=== PATIENT | male | born 1940 | race Caucasian/White ===

== ENCOUNTER → 2019-10-11 | Outpatient (CLI) | payer OTHER ==
[~2019-10-11] MED LIST: AMBIEN 10 MG TA10 MG PO; ASPIRIN EC81 M1 PO; AZITHROMYCIN500 MG PO; BENADRYL25 MG PO; BUPROPION HCL150 M1 PO; DILTIAZEM ER180 M2 PO; DIOVAN320 MG PO; FISH OIL 1,0001 EAC9 PO; FLONASE 0.05%50 MCG NARES; IRON325 M1 PO; LIPITOR40 MG PO; METFORMIN HCL500 M3 PO; PREDNISONE 5 MG5 M1 PO; PROAIR HFA8.5 GM INH; PROTONIX40 M2 PO; SINGULAIR 10 MG10 M1 PO; TRULICITY1.5 MG/0.5 SUBQ; UNICOMPLEX M TA1 TA1 PO
[2019-10-11 13:25] VITALS: BP 113/57
[2019-10-11 14:40] VITALS: BP 126/51
--- NOTE | 2019-10-11 15:08 | NUR ---
IN FOR 1ST INJECTAFER INFUSION FOR IRON DEFICIENCY ANEMIA. ADMISSION HISTORY AND ASSESSMENT COMPLETED. INFUSED INJECTAFER OVER 30 MINUTES AND TOLERATED WELL. OBSERVED FOR 30 MINUTES. POST BP GOOD. REMOVED IV AND DISMISSED IN STABLE CONDITION. TO RETURN NEXT FRIDAY FOR 2ND INFUSION.
== END ==
LOC: OPONC 12:40
DX: D50.0 Iron deficiency anemia secondary to blood loss (chronic) (principal); N18.1 Chronic kidney disease, stage 1
CPT/HCPCS: 95000

== ENCOUNTER → 2019-10-18 | Outpatient (CLI) | payer OTHER ==
[2019-10-18 12:40] VITALS: BP 125/72
[2019-10-18 14:00] VITALS: BP 126/52
--- NOTE | 2019-10-18 14:41 | NUR ---
IN FOR 2ND AND FINAL INJECTAFER INFUSION. STATED DID NOT HAVE ANY SIDE EFFECTS AFTER 1ST INFUSION LAST WEEK. TOLERATED INFUSION WITHOUT INCIDENT. OBSERVED FOR 30 MINUTES. POST VITAL SIGNS GOOD. REMOVED IV AND DISMISSED IN STABLE CONDITION.
== END ==
LOC: OPONC 08:51
DX: D50.0 Iron deficiency anemia secondary to blood loss (chronic) (principal); N18.1 Chronic kidney disease, stage 1
CPT/HCPCS: 95000